=== PATIENT | male | born 1950 | race Two or more races ===

== ENCOUNTER 2017-11-05 20:12 | Inpatient (IN) | payer OTHER ==
[~2017-11-05] VITALS: Ht 160 cm; Wt 63.5 kg
--- NOTE | 2017-11-05 20:25 | NUR ---
DR. SALAS AT BEDSIDE FOR EVAL.
--- NOTE | 2017-11-05 20:30 | NUR ---
PT BIBRA 77 FROM HOME FOR DIZZINESS X 6 HRS SHIPPER. PT AOX4 RR EVEN AND UNLABORED. NO SOB NOTED. NAD NOTED. NO NVD AT THIS TIME. PT NOT DIAPHORETIC. PT GOWNED AND PLACED ON MONTIOR. PT SEEN BY .
[2017-11-05 20:46] LABS: BASOPHILS # (AUTO) 0.1 /CMM (0.0-0.2); BASOPHILS % (AUTO) 0.8 % (0.0-2.0); EOSINOPHILS # (AUTO) 0.4 /CMM (0.0-0.7); EOSINOPHILS % (AUTO) 4.5 % (0.0-6.0); HEMATOCRIT 32 % (39-51); HEMOGLOBIN 11.6 g/dL (13.5-17.5); LYMPHOCYTES # (AUTO) 1.3 /CMM (0.8-4.8); LYMPHOCYTES % (AUTO) 15.8 % (20.0-44.0); MEAN CORPUSCULAR HEMOGLOBIN 36 PG (26.0-33.0); MEAN CORPUSCULAR HGB CONC 36 g/dl (31.0-36.0); MEAN CORPUSCULAR VOLUME 100 fL (80-96); MONOCYTES # (AUTO) 0.6 /CMM (0.1-1.30); MONOCYTES % (AUTO) 7.3 % (2.0-12.0); NEUTROPHILS # (AUTO) 5.9 /CMM (1.8-8.9); NEUTROPHILS % (AUTO) 71.6 % (43.0-81.0); PLATELET COUNT (AUTO) 253 /CMM (150-450); RDW COEFFICIENT OF VARIATION 12.1 (11.5-15.0); RED BLOOD CELL COUNT(AUTO) 3.25 MIL/uL (4.5-6.0); WHITE BLOOD COUNT (AUTO) 8.3 K/uL (4.3-11.0)
--- NOTE | 2017-11-05 20:47 | NUR ---
PT TO CT.
--- NOTE | 2017-11-05 20:54 | NUR ---
PT RETURNED FROM CT.
[2017-11-05 20:55] LABS: CALCIUM, SERUM 8.3 mg/dL (8.5-10.1); CREATININE 0.8 mg/dL (0.6-1.3); POTASSIUM 4.3 mmol/L (3.5-5.1)
[2017-11-05] MEDS ORDERED: IV NS 0.9% 1,000 ML BAG IV ONE (21:00)
--- NOTE | 2017-11-05 21:45 | NUR ---
DR. SALAS AT BEDSIDE SPEAKING TO PT REGARDING RESULTS.
--- NOTE | 2017-11-05 22:22 | NUR ---
CALLED NURSE SUP FOR MEDSURG BED
[2017-11-05] MEDS ORDERED: CLOP75TA15 PO (22:26)
[2017-11-05] MEDS ORDERED: VALS1TAB4 PO (22:26)
--- NOTE | 2017-11-05 22:56 | NUR ---
REPORT GIVEN TO VINCENZO GARCÍA FOR MS BED [id number]
--- NOTE | 2017-11-05 22:59 | NUR ---
PT TRANSFERRED VIA WC.
[2017-11-05 23:00] VITALS: BP 136/67
[2017-11-06] MEDS ORDERED: *INSULIN REGULAR(HUMULIN R)HUM 100 UNIT/ML VIAL SQ PRN (00:30)
[2017-11-06] MEDS ORDERED: INSULIN REGULAR, HUMAN 100 UNIT/ML 3 ML VIAL SQ PRN (00:30)
[2017-11-06] MEDS ORDERED: ZOLPIDEM TARTRATE 5 MG TABLET PO PRN (00:30)
[2017-11-06] MEDS ORDERED: DEXTROSE 50%-WATER 50 ML DISP.SYRIN IV PRN (00:30)
[2017-11-06 01:10] VITALS: BP 136/67
--- NOTE | 2017-11-06 01:40 | NUR ---
WOUND NURSEDRUPAL ARCHITECT NOTES ADMITTED FROM ER PER WHEELCHAIR THIS 67 Y.O. 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
[2017-11-06 04:00] VITALS: BP 122/63
--- NOTE | 2017-11-06 05:30 | NUR ---
HEALTH INFORMATION PROVIDER NOTES ACCU-CHECK BLOOD SUGAR CHECK 115,NO INSULIN COVERAGE.
--- NOTE | 2017-11-06 06:26 | NUR ---
BRAZING MACHINE OPERATOR NOTES SLEPT WELL POST MN.CLAIMED DIZZINESS STILL THERE BUT NOT THAT STRONG.IN NO ACUTE DISTRESS.WILL ENDORSE TO DAY NURSE FOR IVA.
--- NOTE | 2017-11-06 06:38 | NUR ---
TEXTED DR. DOLAN FOR MRI APPROVAL.
[2017-11-06] MEDS ORDERED: BLOOD SUGAR DIAGNOSTIC 1 EACH STRIP VI SCH (07:30)
[2017-11-06 07:37] LABS: BASOPHILS % (AUTO) 0.3 % (0.0-2.0); EOSINOPHILS # (AUTO) 0.4 /CMM (0.0-0.7); EOSINOPHILS % (AUTO) 5.1 % (0.0-6.0); HEMATOCRIT 33 % (39-51); HEMOGLOBIN 11.7 g/dL (13.5-17.5); LYMPHOCYTES # (AUTO) 0.9 /CMM (0.8-4.8); LYMPHOCYTES % (AUTO) 12.6 % (20.0-44.0); MEAN CORPUSCULAR HEMOGLOBIN 36 PG (26.0-33.0); MEAN CORPUSCULAR HGB CONC 36 g/dl (31.0-36.0); MEAN CORPUSCULAR VOLUME 101 fL (80-96); MONOCYTES # (AUTO) 0.7 /CMM (0.1-1.30); MONOCYTES % (AUTO) 10.5 % (2.0-12.0); NEUTROPHILS % (AUTO) 71.5 % (43.0-81.0); PLATELET COUNT (AUTO) 230 /CMM (150-450); RDW COEFFICIENT OF VARIATION 12.7 (11.5-15.0); RED BLOOD CELL COUNT(AUTO) 3.25 MIL/uL (4.5-6.0)
--- NOTE | 2017-11-06 07:52 | NUR ---
RN OPENING NOTES RECEIVED PATIENT RESTING COMFORTABLY IN BED WITH EYES CLOSED. EASILY AROUSABLY. AOX4. ON TELE MONITOR READY SB 54. PATIENT DENIES DIZZINESS, SOB, CP, OR ANY PAIN OF ANY KIND. RESPIRATIONS EVEN AND UNLABORED. NO ACUTE DISTRESS. IV ACCESS IN THE LEFT AC 18 G PATENT AND INTACT. NO S/S OF STROKE NOTED. PATIENT TO HAVE MRI OF THE BRAIN W CONTRAST. PATIENT REMAINS NPO. BED LOCKED INT HE LOWEST POSITION WITH SIDE RAILS UP X2. CALL LIGHT WITHIN REACH. WILL CONTINUE TO MONITOR, ASSESS AND EDUCATE PATIENT THROUGHOUT SHIFT.
[2017-11-06 08:03] LABS: CALCIUM, SERUM 8.2 mg/dL (8.5-10.1); CREATININE 0.7 mg/dL (0.6-1.3); POTASSIUM 4.3 mmol/L (3.5-5.1)
[2017-11-06] MEDS ORDERED: ASPIRIN 81 MG TAB.CHEW PO SCH (09:00)
[2017-11-06] MEDS ORDERED: ATOR10TA PO (09:06)
[2017-11-06] MEDS ORDERED: VALS80TA2 PO (09:06)
--- NOTE | 2017-11-06 09:15 | NUR ---
RN NOTES ORDERS GIVEN TO CANCEL MRI OF BRAIN. WILL CARRY OUT ORDERS GIVEN. PATIENT TO BE DISCHARGED.
[2017-11-06] MEDS ORDERED: CLOPIDOGREL BISULFATE 75 MG TABLET PO SCH (09:21)
--- NOTE | 2017-11-06 10:45 | NUR ---
HEALTH TECHNICIAN NOTES PATIENT DISCHARGED IN STABLE CONDITION HOME. AOX4. NO ACUTE DISTRESS NOTED. RESPIRATIONS EVEN AND UNLABORED. PATIENT ABLE TO AMBULATE ADEQUATELY WITHOUT ANY DIZZINESS. NO CP, SOB, OR ANY PAIN AT THIS TIME. PATIENT VERBALIZED UNDERSTANDING OF STROKE TEACHING. VERBALIZED UNDERSTANDING OF DISCHARGE TEACHING AND EXITCARE. IN THE EVENT OF AN EMERGENCY, PATIENT TO RETURN TO THE EMERGENCY ROOM. CONITNUE HOME MEDS WELL NEWLY PRESCRIBED MEDICATIONS.
[2017-11-06] MEDS ORDERED: ATORVASTATIN 10 MG TABLET PO SCH (18:00)
[2017-11-06] MEDS ORDERED: ATORVASTATIN 40 MG TABLET PO SCH (22:00)
[2017-11-07] MEDS ORDERED: VALSARTAN 80 MG TABLET PO SCH (09:00)
== END 2017-11-06 11:21 | disposition home or self-care (01) | DRG 315 ==
LOC: ER 20:19 → MED 23:02 → TELE 23:58
PROVIDERS: ADMIT Internal Medicine; ATTEND Internal Medicine
DX: I95.9 Hypotension, unspecified (principal); E87.1 Hypo-osmolality and hyponatremia; I69.354 Hemiplegia and hemiparesis following cerebral infarction affecting left non-dominant side; I10 Essential (primary) hypertension; E11.9 Type 2 diabetes mellitus without complications; Z79.899 Other long term (current) drug therapy; Z79.01 Long term (current) use of anticoagulants; E86.0 Dehydration
CPT/HCPCS: 36415; 70450-TC; 80048-TC; 80061-TC; 82962-TC; 84484-TC; 85025-TC; 87081-TC; A4606; J1815; J7030; Z7610